=== PATIENT | female | born 1995 | race American Indian/Alaskan Native ===

== ENCOUNTER 2023-01-19 23:14 | Emergency (ER) | payer MEDICAID, OTHER ==
[~2023-01-19] VITALS: Ht 170.2 cm; Wt 81.8 kg
[2023-01-19 23:55] LABS: URINE HCG NEGATIVE (NEG)
[2023-01-20 00:36] LABS: ALANINE AMINOTRANSFERASE 82 U/L (12-78); ALBUMIN 3.8 G/DL (3.4-5.0); ALBUMIN/GLOBULIN RATIO 0.7 (1.1-1.5); ALKALINE PHOSPHATASE 100 IU/L (46-116); AMYLASE 25 U/L (25-115); ANION GAP 9 (8-16); ASPARTATE AMINO TRANSFERASE 42 U/L (10-37); BILIRUBIN,TOTAL 0.5 MG/DL (0.1-1.0); BLOOD UREA NITROGEN 7 MG/DL (7-18); CALCIUM 9.5 MG/DL (8.5-10.1); CHLORIDE 96 MMOL/L (99-107); CREATININE 0.87 MG/DL (0.40-0.90); GLUCOSE 125 MG/DL (70-104); LIPASE 100 U/L (73-393); POTASSIUM 4.1 MMOL/L (3.5-5.1); SODIUM 132 MMOL/L (135-145); TOTAL CARBON DIOXIDE 26.6 MMOL/L (24-32); eGFR 77 ML/MIN
[2023-01-20 00:47] LABS: CLARITY,URINE CLEAR (Clear); COLOR,URINE STRAW (Yellow); GLUCOSE, URINE NEGATIVE (Neg); KETONES,URINE NEGATIVE (Neg); LEUKOCYTE ESTERASE ,URINE NEGATIVE (Neg); NITRITES, URINE NEGATIVE (Neg); OCCULT BLOOD,URINE SMALL (Neg); PROTEIN,URINE NEGATIVE (Neg); UROBILINOGEN,URINE 0.2 E.U/dL (0.2-1.0)
[2023-01-20 00:50] LABS: UA COLLECTION TYPE CLN CATCH MIDSTREAM
[2023-01-20 00:53] LABS: RBC,URINE 0-2 /HPF (0-2); WBC,URINE 0-4 /HPF (0-4)
[2023-01-20 00:54] LABS: BACTERIA,URINE FEW /HPF (Neg); SQUAMOUS EPITHELIAL CELL,UR FEW /LPF (FEW)
[2023-01-20 01:00] LABS: BASOPHILS % (AUTO) 0.1 % (0-1); EOSINOPHILS % (AUTO) 0.1 % (0-6); HEMATOCRIT 44.3 % (35.0-45.0); HEMOGLOBIN 15.2 g/dl (12.0-16.0); LYMPHOCYTES # (AUTO) 1.3 X10'3 (1.1-4.8); LYMPHOCYTES % (AUTO) 8.4 % (21-51); MEAN CORPUSCULAR HEMOGLOBIN 30.9 PG (27.0-31.0); MEAN CORPUSCULAR HGB CONC 34.3 g/dL (33.0-36.5); MEAN PLATELET VOLUME 8.1 FL (7.4-10.4); MONOCYTES # (AUTO) 1.7 X10'3 (0-0.9); MONOCYTES % (AUTO) 10.7 % (2-12); NEUTROPHILS # (AUTO) 12.9 X10'3 (1.8-7.7); NEUTROPHILS % (AUTO) 80.7 % (42-75); PLATELET COUNT 264 X10'3 (140-440); RED BLOOD COUNT 4.93 X10'6 (4.20-5.60); RED CELL DISTRIBUTION WIDTH 12.8 % (11.5-14.5)
[2023-01-20] MEDS ORDERED: normal saline 1000ML IV soln IVB ONE (01:45)
[2023-01-20] MEDS ORDERED: ondansetron/PF 4mg/2ml inj IV STA (01:45)
[2023-01-20 03:00] VITALS: BP 125/84
[2023-01-20] MEDS ORDERED: ONDA8TAB13 PO (04:17)
== END 2023-01-20 04:42 | disposition home or self-care (01) ==
LOC: ER 23:16
DX: R11.2 Nausea with vomiting, unspecified (principal); R10.11 Right upper quadrant pain; R14.0 Abdominal distension (gaseous); Z79.899 Other long term (current) drug therapy
CPT/HCPCS: 36415; 76700; 80053; 81001; 81025; 82150; 83690; 85025; 96361; 96374; 99285; J2405; J7030; 81003

== ENCOUNTER 2025-09-04 09:04 | Emergency (ER) | payer MEDICAID ==
[~2025-09-04] VITALS: Ht 170.2 cm; Wt 92.4 kg
[~2025-09-04 09:04] MED LIST: ONDA-245 PO
[2025-09-04 09:10] VITALS: TEMP 96.5
--- NOTE | 2025-09-04 09:15 | ELECTROCARDIOGRAPH REPORT ---
[facility] Test Date: 2025-09-04 Test Time: 09:07:21 Pat Name: ASHA BANDA Department: EMERGENCY ROOM Room: Gender: F Java Sdet: MUKUL : 1995 Requested By: ANGELLA JUTSICE Order Number: [id number] Reading MD: Measurements Intervals [place] Rate: 75 P: 40 [place]: 126 QRS: 67 QRSD: 75 T: 18 QT: 380 QTc: 425 Interpretive Statements Sinus rhythm Low voltage, precordial leads Borderline T abnormalities, anterior leads Baseline wander in lead(s) III,V4 Please click the below link to view image of tracing.
--- NOTE | 2025-09-04 09:30 | RADIOLOGY REPORT ---
DI CHEST,SINGLE VIEW, HISTORY: CP COMPARISON: None None TECHNICAL DATA: 1 view of the chest was obtained. FINDINGS: Lines and tubes: None Cardiomediastinal silhouette: normal Pulmonary vasculature: normal Lung expansion: normal Lung airspace: normal Lung interstitium: normal Pleura: normal Pneumothorax: no Bones: Unremarkable Other: no IMPRESSION: No acute intrathoracic abnormality.
--- NOTE | 2025-09-04 09:37 | Physician Documentation ---
History of Present Illness ~ Chief Complaint: Chest Pain Stated Complaint: CP Time Seen by MD: 09:19 Mode of Arrival: POV HPI He 1-year-old female presents to the ED with a complaint of left chest pain which radiates to her shoulder and down her arm. States she feels anxious as well. Says that she does have a chronic history of bundle branch block. States that she also has a tendency to drank too much. She adds that last night she drank excessively and woke up feeling anxious with chest pain. Denies any nausea denies any shortness of breath Day of Onset: Sep 04, 2025 Medication Reconciliation Allergies: Coded Allergies: No Known Allergies (Unverified , 09/04/25) Scheduled Ondansetron 8mg ODT (Ondansetron Odt), 1 TAB PO Q8H Past Medical History Past Medical History: No Pertinent History Past Surgical History: no surgical history Alcohol Use: Rarely Drug Use: none Lives with: Mother, Spouse Lives In: Home Review of Systems All Other Systems at this time: Reviewed and Negative ROS As stated above in the HPI, otherwise all systems are reviewed and negative. Physical Exam Vital Signs: Temperature: 96.5, Source: Temporal, Heart Rate: 81, Respiratory Rate: 18, BP: 137/86, Pulse Oximetry: 99, Weight: 92.400 Physical Exam General: Alert, no apparent distress. Respiratory: Lungs clear, no respiratory distress. Chest: No accessory muscle use. Cardiovascular: Regular rate and rhythm, no murmurs. Gastrointestinal: Soft, nontender, nondistended. Bowels sounds present. Neurologic: Oriented x4. Psychiatric: Normal mood and affect. Skin: Normal color, warm and dry. No edema, no ecchymosis. Progress Results/Orders Results/Orders Completed Orders - BLAKE DA SILVA NP Ketorolac Trometh 30mg/Ml Vial (Toradol (09/04/25 10:15) Vital Signs 09/04/25 09/04/25 09/04/25 09:10 09:59 10:52 Temp 96.5 Pulse 81 72 75 Resp 18 12 12 B/P (MAP) 137/86 121/85 (97) 125/80 (95) Pulse Ox 99 99 100 O2 Flow Rate 0 0 Laboratory Tests Test 09/04/25 10:06 White Blood Count 5.7 Red Blood Count 4.36 Hemoglobin 13.3 Hematocrit 39.2 Mean Corpuscular Volume 89.9 Mean Corpuscular Hemoglobin 30.5 Mean Corpuscular Hemoglobin Concent 33.9 Red Cell Distribution Width 12.8 Platelet Count 241 Mean Platelet Volume 8.1 Neutrophils (%) (Auto) 74.6 Lymphocytes (%) (Auto) 18.3 L Monocytes (%) (Auto) 5.8 Eosinophils (%) (Auto) 1.2 Basophils (%) (Auto) 0.1 Neutrophils # (Auto) 4.3 Lymphocytes # (Auto) 1.0 L Monocytes # (Auto) 0.3 Eosinophils # (Auto) 0.1 Basophils # (Auto) 0.0 CBC Comment Sodium Level 137 Potassium Level 4.1 Chloride Level 102 Carbon Dioxide Level 28.6 Anion Gap 6 L Blood Urea Nitrogen 9 Creatinine 0.59 Estimated GFR/1.73 m2 > 90 BUN/Creatinine Ratio 15.3 Glucose Level 88 Calcium Level 8.3 L Troponin I High Sensitivity < 4 L Troponin I High Sens Percent Delta Troponin I Hi Sens Absolute Change Pro-B-Type Natriuretic Peptide 46 Albumin 3.4 Chemistry Comments Medical Decision Making Additional information obtaine: old records Findings 29-year-old female who was initially concerned a cardiac event secondary to her reported symptoms. However her laboratory values x-ray and EKG were all reassuring. Per my interpretation her x-ray was normal sinus rhythm at 75 beats per movement with no axis deviation. X-ray showed no signs of cardiomegaly or infiltrate. He has are per my interpretation I suspect that her symptoms are clinically correlated to minor alcohol withdrawal and anxiety. Her laboratory results were reassuring in her no current signs of cardiac events Heart Score: 1 Differential Dx:Considerations: Include: angina, aortic dissection, chest wall pain, cholelithiasis, CHF, costochondritis, esophageal reflux/spasm, gastritis, herpes zoster, myocardial infarction, pericarditis, pleuritis, pancreatitis, pneumonia, pneumothorax, pulmonary embolus, other Departure Impression: Primary Impression: Anxiety Additional Impression: Alcohol abuse Discharge Instructions: Managing Anxiety, Adult, Nonspecific Chest Pain, Adult Referrals: NO PRIMARY CARE PROVIDER (PCP) Signature Scribe Signature: f Attestation: Scribed for Blake Da Silva Np by Blake Jurado NP . 09/04/25 10:51 BLAKE DA SILVA NP Sep 04, 2025 09:37
[2025-09-04 10:19] LABS: MEAN PLATELET VOLUME 8.1 FL (7.4-10.4); RED CELL DISTRIBUTION WIDTH 12.8 % (11.5-14.5)
[2025-09-04] MEDS: ketorolac trometh 30MG/ML vial 30 MG/ML VIAL IM ONE (10:30)
[2025-09-04 10:41] LABS: CREATININE 0.59 MG/DL (0.40-0.90); PRO BRAIN NATRIURETIC PEPTIDE 46 PG/ML (0-125); TOTAL CARBON DIOXIDE 28.6 MMOL/L (24-32); eCRCL 134 ML/MIN; eGFR > 90 ML/MIN
[2025-09-04 10:52] VITALS: BP 125/80; PULSE 75; RESP 12; O2SAT 100
== END 2025-09-04 11:13 | disposition home or self-care (01) ==
LOC: ER 09:05
DX: F41.9 Anxiety disorder, unspecified (principal); F10.10 Alcohol abuse, uncomplicated; Z79.899 Other long term (current) drug therapy; Y90.9 Presence of alcohol in blood, level not specified
CPT/HCPCS: 36415; 71045; 80048; 83880; 84484; 85025; 93005; 99285